=== PATIENT | male | born 1985 | race Caucasian/White ===

== ENCOUNTER 2018-10-24 20:50 | Emergency (ER) | payer OTHER ==
--- NOTE | 2018-10-24 20:53 | PDOC ---
Rapid Medical Evaluation Time Seen by Provider: 10/24/18 20:51 Medical Evaluation: 10/24/18 20:51 I have performed a brief in-person evaluation of this patient. The patient presents with a chief complaint of: atraumatic right knee pain Pertinent physical exam findings: No bony tenderness. Pt refusing complete evaluation. I have ordered the following: xray The patient will proceed to the ED for further evaluation. Discharge Disposition - Diagnosis Knee pain, acute - Referrals - Patient Instructions - Post Discharge Activity
[2018-10-24 20:54] VITALS: BP 120/82; PULSE 114; TEMP 98.3; BMI 27.9
--- NOTE | 2018-10-24 21:43 | PDOC ---
History of Present Illness - General Chief Complaint: Pain, Acute Stated Complaint: HURT RT KNEE Time Seen by Provider: 10/24/18 20:51 - History of Present Illness Initial Comments: 10/24/18 21:38 33-year-old male without comorbidities presents for evaluation of right knee pain after twisting type injury. Past History - Past Medical History Allergies/Adverse Reactions: Allergies Allergy/AdvReac Type Severity Reaction Status Date / Time No Known Allergies Allergy Verified 10/24/18 20:54 Home Medications: Ambulatory Orders NK [No Known Home Medication] 10/24/18 COPD: No - Suicide/Smoking/Psychosocial Hx Smoking History: Never smoked Review of Systems - Review of Systems Musculoskeletal: Yes: Joint Pain *Physical Exam - Vital Signs Last Vital Signs Temp Pulse Resp BP Pulse Ox 98.3 F 114 H 20 120/82 98 10/24/18 20:52 10/24/18 20:52 10/24/18 20:52 10/24/18 20:52 10/24/18 20:52 - Physical Exam Comments: 10/24/18 21:38 Right knee skin color and temperature are normal range of motion 0-30 beyond that causes pain. Extensor mechanism is intact. He has tenderness over the lateral femoral condyle and medial joint line. No endpoint on Caty's test stable to varus and valgus stress test. Thighs and calves are soft and nontender is neurovascularly intact full nonpainful ankle and hip range of motion. Medical Decision Making - Medical Decision Making 10/24/18 21:39 No evidence of fracture trauma destructive process. This is a right knee ACL tear. Weight-bear as tolerated with knee immobilizer and crutches Tylenol Motrin for pain. Orthopedic surgery follow-up given discussed with orthopedic surgery they're expecting the patient follow-up. *DC/Admit/Observation/Transfer Diagnosis at time of Disposition: Knee pain, acute, ACL (anterior cruciate ligament) rupture - Discharge Dispostion Disposition: HOME Condition at time of disposition: Stable Decision to Admit order: No - Referrals Referrals: Kyree Barnes DO [Staff Physician] - - Patient Instructions Printed Discharge Instructions: DI for Anterior Cruciate Ligament Injury, Anterior Cruciate Ligament Injury Additional Instructions: Regrese a la bruno de emergencias por empeoramiento de los sntomas. Por favor, deje el inmovilizador de rodilla para caminar. Utilice las muletas y el peso rhonda tolerado. Tylenol y Motrin rhonda se indica para el dolor. Puede quitarse el inmovilizador de rodilla por motivos de higiene. Seguimiento con ciruga ortopdica en 1-2 caldwell para negin evaluacin y tratamiento adicionales. Debe realizar un seguimiento sin falta, bradley lesin de rodilla puede requerir ciruga. return to the emergency room for worsening symptoms. Please leave the knee immobilizer on for walking around. Use the crutches and weight-bear as tolerated. Tylenol and Motrin as directed for pain. He may remove remove the knee immobilizer for hygiene purposes. Follow-up with orthopedic surgery in 1-2 days for further evaluation and treatment. You must follow-up without fail your knee injury may require surgery. Print Language: GERMAN - Post Discharge Activity
== END 2018-10-24 21:47 | disposition home or self-care (01) ==
LOC: JERFT 20:50
PROC: 2W3QXYZ Immobilization of Right Lower Leg using Other Device (ICD-10-PCS; principal; 2018-10-24)
DX: S83.511A Sprain of anterior cruciate ligament of right knee, initial encounter (principal); X50.1XXA Overexertion from prolonged static or awkward postures, initial encounter; Y93.89 Activity, other specified; Y92.89 Other specified places as the place of occurrence of the external cause; Y99.8 Other external cause status
CPT/HCPCS: 73560-TC-RT-FY; 99281-25

== ENCOUNTER 2019-04-28 15:51 | Emergency (ER) | payer SELFPAY ==
[2019-04-28 16:03] VITALS: BP 137/84; PULSE 79; BMI 29.2
[2019-04-28 16:05] VITALS: TEMP 97.9
[2019-04-28] MEDS ORDERED: morphine CARPU-JECT 2 MG/1 ML DISP.SYRIN IVPUSH ONE (16:21)
[2019-04-28] MEDS ORDERED: KETOROLAC TROMETHAMINE 30 MG/1 ML VIAL IVPUSH ONE (16:22)
[2019-04-28] MEDS ORDERED: ONDANSETRON 4 MG/2 ML VIAL IVPUSH ONE (16:22)
[2019-04-28] MEDS ORDERED: KETOROLAC TROMETHAMINE 30 MG/1 ML VIAL ONE (16:36)
[2019-04-28] MEDS ORDERED: MORPHINE SULFATE 2 MG/ML VIAL ONE (16:36)
[2019-04-28] MEDS ORDERED: ONDANSETRON 4 MG/2 ML VIAL ONE (16:36)
--- NOTE | 2019-04-28 16:38 | PDOC ---
History of Present Illness - General Chief Complaint: Pain, Acute Stated Complaint: KIDNEY PAIN History Source: Patient Exam Limitations: No Limitations - History of Present Illness Initial Comments: 04/28/19 16:33 Patient is a 33 year old male with h/o kidney stone, hand surgery c/o left flank pain since 5 am this morning. States woke up with the pain this morning. Pain has been constant 10/10, sharp with no aggravating or alleviating factors but associated with nausea and vomiting. He took naproxen at 1:00 pm with no relief of symptoms. Prior to presentation went to [facility], which he said he spent 3 hours with no attention so has presented here for evaluation. PMHX: as above PSOCHX: occ beer, (-) cig, (-) drug ALL: NKDA GENERAL/CONSTITUTIONAL: [No fever or chills. No weakness. No weight change.] HEAD, EYES, EARS, NOSE AND THROAT: [No change in vision. No ear pain or discharge. No sore throat.] CARDIOVASCULAR: [No chest pain or shortness of breath.] RESPIRATORY: [No cough, wheezing, or hemoptysis.] GASTROINTESTINAL: [(+) nausea, vomiting, (-) diarrhea or constipation. No rectal bleeding.] GENITOURINARY: [No dysuria, frequency, or change in urination.] MUSCULOSKELETAL: [No joint or muscle swelling or pain. No neck or back pain.] SKIN AND BREASTS: [No rash or easy bruising.] NEUROLOGIC: [No headache, vertigo, loss of consciousness, or loss of sensation.] PSYCHIATRIC: [No depression or anxiety.] ENDOCRINE: [No increased thirst. No abnormal weight change.] HEMATOLOGIC/LYMPHATIC: [No anemia, easy bleeding, or history of blood clots.] ALLERGIC/IMMUNOLOGIC: [No hives or skin allergy. No latex allergy.] GENERAL: [The patient is awake, alert, and fully oriented, in ,mild distress.] HEAD: [Normal with no signs of trauma.] EYES: [Pupils equal, round and reactive to light, extraocular movements intact, sclera anicteric, conjunctiva clear.] ENT: [Ears normal, nares patent, oropharynx clear without exudates. Moist mucous membranes.] NECK: [Normal range of motion, supple without lymphadenopathy, JVD, or masses.] LUNGS: [Breath sounds equal, clear to auscultation bilaterally. No wheezes, and no crackles.] HEART: [Regular rate and rhythm, normal S1 and S2 without murmur, rub.] ABDOMEN: [Soft, (+) tenderness to left lower quad, normoactive bowel sounds. No guarding, no rebound. No masses, (+) L CVAT] EXTREMITIES: [Normal range of motion, no edema. No clubbing or cyanosis. No cords, erythema, or tenderness.] NEUROLOGICAL: [Cranial nerves II through XII grossly intact. Normal speech, normal gait.] PSYCH: [Normal mood, normal affect.] SKIN: [Warm, Dry, normal turgor, no rashes or lesions noted.] Past History - Past Medical History Allergies/Adverse Reactions: Allergies Allergy/AdvReac Type Severity Reaction Status Date / Time No Known Allergies Allergy Verified 04/28/19 16:03 Home Medications: Ambulatory Orders Oxycodone HCl/Acetaminophen [Percocet 5-325 mg Tablet] 1 tab PO Q4H #20 tablet MDD 6 04/28/19 Tamsulosin HCl [Flomax] 0.4 mg PO DAILY #7 cap.er.24h 04/28/19 COPD: No Kidney Stones: Yes - Psycho Social/Smoking Cessation Hx Smoking History: Never smoked *Physical Exam - Vital Signs Last Vital Signs Temp Pulse Resp BP Pulse Ox 97.9 F 79 18 137/84 99 04/28/19 16:01 04/28/19 16:01 04/28/19 16:01 04/28/19 16:01 04/28/19 16:01 ED Treatment Course - LABORATORY CBC & Chemistry Diagram: 04/28/19 16:40 04/28/19 16:40 - RADIOLOGY Radiology Studies Ordered: Category Date Time Status ABDOMEN & PELVIS CT W/O CONTR [CT] Stat CT Scan 04/28/19 16:22 Ordered Medical Decision Making - Medical Decision Making 04/28/19 16:33 Patient is a 33 year old male with h/o kidney stone, hand surgery c/o left flank pain since 5 am this morning. States woke up with the pain this morning. Pain has been constant 10/10, sharp with no aggravating or alleviating factors but associated with nausea and vomiting. He took naproxen at 1:00 pm with no relief of symptoms. Prior to presentation went to [facility], which he said he spent 3 hours with no attention so has presented here for evaluation. Symptoms consistent with renal colic Labs Pain meds, antinausea. CT abdomen pelvis Noncon Reassess Patient feels improved. 04/28/19 19:27 Accession No: [id number] Patient : 1985 Reason for Exam: left flank pain Referring Physician: Patient Name: KY SOLER THIS IS A PRELIMINARY REPORT FROM [facility] DATE OF SERVICE: 2019-04-28 17:50:35 IMAGES: [id number] EXAM: ABDOMEN \T\ PELVIS CT W/O CONTR HISTORY: Left flank pain. 33-year-old male. COMPARISON: None. FINDINGS: Cardiac silhouette is normal in appearance. Minor fibrotic changes or dependent density in both lung bases. No pleural effusion. Uniform attenuation is seen throughout the liver, spleen and pancreas. No ductal dilatation, mass or cystic change. Normal gallbladder is present in the right upper quadrant. No adrenal masses. Both kidneys demonstrate calcifications of the cortical medullary junctional zone in the lower pole on the right and in the lower and upper pole on the left. Hydronephrosis of left kidney is evident with an obstructing calculus in the proximal third of the left ureter that measures 0.9 x 0.8 x 0.9 cm in size. No retroperitoneal adenopathy or fibrosis. Stomach, small bowel and colon show no evidence of bowel wall thickening. No acute inflammatory changes the right or left lower quadrant. No evidence of obstruction or ileus. Pelvic CT shows the appendix in the right lower quadrant to be normal in appearance. No diverticular disease. No acute inflammatory changes in the true pelvis. No pelvic adenopathy or free fluid in the true pelvis. The bladder is normal in appearance. No evidence of distal ureterolithiasis or ureteral dilatation. The perivesicular and perirectal fat is well preserved. No significant bone or surrounding soft tissue abnormality. IMPRESSION Bilateral nephrolithiasis. Obstructing calculus in the proximal third of the left ureter causing left hydronephrosis. The obstructing calculus measures are 0.9 x 0.8 x 0.9 cm in size. No distal ureterolithiasis or ureterectasis. No bladder stones. The prostate gland and seminal vesicles are normal in appearance. One or more of the following dose reduction techniques were used: automated exposure control, adjustment of the mA and/or kV according to patient size, use of iterative reconstructive technique. THIS DOCUMENT HAS BEEN ELECTRONICALLY SIGNED Renaldo Mckeon M.D. 04/28/2019 18:51 JUAN Valle Please call Imaging Social Worker [phone] ([phone]) with questions. INTERPRETING RADIOLOGIST: Renaldo Mckeon MD Electronically Signed: Apr 28, 2019 06:52PM EDT Laboratory Tests 04/28/19 04/28/19 04/28/19 16:40 16:40 18:49 WBC 14.3 H Hgb 16.2 Hct 49.1 H Plt Count 266 Sodium 141 Potassium 4.5 Chloride 106 Carbon Dioxide 27 Anion Gap 9 BUN 10.2 Creatinine 1.1 Random Glucose 115 H Urine Color Yellow Urine Appearance Clear Urine pH 5.0 Ur Specific [place] 1.009 L Urine Protein Negative Urine Glucose (UA) Negative Urine Ketones Negative Urine Blood 1+ H Urine Nitrite Negative Urine Bilirubin Negative Urine Urobilinogen 0.2 Ur Leukocyte Esterase Negative Urine WBC (Auto) 0 Urine RBC (Auto) 2 04/28/19 19:31 CT scan was discussed with the patient Patient reports that his pain is returning will give Percocet 1 tab p.o. and Flomax 0.4 mg p.o. 04/28/19 20:16 Patient feels improved from medications will discharge at this time and instructed to follow-up with urology. I discussed the physical exam findings, ancillary test results and final diagnoses with the patient. I answered all of the patient's questions. The patient was satisfied with the care received and felt comfortable with the discharge plan and treatment plan. The Patient agrees to follow up with the primary care physician within 24-72 hours. Discharge - Discharge Information Problems reviewed: Yes Clinical Impression/Diagnosis: Renal colic on left side Condition: Stable Disposition: HOME - Additional Discharge Information Prescriptions: Oxycodone HCl/Acetaminophen [Percocet 5-325 mg Tablet] 1 tab PO Q4H #20 tablet MDD 6 Tamsulosin HCl [Flomax] 0.4 mg PO DAILY #7 cap.er.24h - Follow up/Referral Referrals: Girish Elizalde MD [Staff Physician] - - Patient Discharge Instructions Patient Printed Discharge Instructions: DI for Kidney Stones Additional Instructions: Your Discharge Instructions: You must call primary care physician within 24 hours to arrange follow-up. Return to the Emergency Department with any new, persistent or worsening symptoms, for fever, chills, SOB, dizziness or any other concerning changes that may occur. Follow-up with the urologist call for an appointment tomorrow. - Post Discharge Activity
[2019-04-28 16:56] LABS: BASO % 0.4 % (0-2.0); EOS % 0.1 % (0-4.5); HEMATOCRIT 49.1 % (35.4-49); HEMOGLOBIN 16.2 GM/dL (11.7-16.9); LYMPH % 9.1 % (8-40); MCHC 33.1 g/dl (32.0-35.9); MEAN CELL VOLUME 87.7 fl (80-96); MEAN PLT VOLUME 9.4 fl (7.5-11.1); MONO % 5.2 % (3.8-10.2); NEUT % 85.2 % (42.8-82.8); PLATELET COUNT 266 K/MM3 (134-434); RDW 13.1 % (11.9-15.9); WHITE BLOOD COUNT 14.3 K/mm3 (4.0-10.0)
[2019-04-28 17:22] LABS: ALBUMIN 4.1 g/dl (3.4-5.0); BILIRUBIN,TOTAL 0.6 mg/dL (0.2-1); BLOOD UREA NITROGEN 10.2 mg/dL (7-18); CALCIUM 8.7 mg/dL (8.5-10.1); CREATININE 1.1 mg/dL (0.55-1.3); POTASSIUM 4.5 mmol/L (3.5-5.1); TOT PROT 7.3 g/dl (6.4-8.2)
[2019-04-28 19:25] LABS: EPI CELLS 0.1 /HPF (0-5/HPF); HYALINE CASTS 1 /lpf (0-8); URINE APPEARANCE CLEAR; URINE BACTERIA 1.4 /hpf (NEGATIVE); URINE BILIRUBIN NEGATIVE (NEGATIVE); URINE COLOR YELLOW; URINE GLUCOSE (UA) NEGATIVE (NEGATIVE); URINE KETONE NEGATIVE (NEGATIVE); URINE LEUK ESTERASE NEGATIVE (NEGATIVE); URINE NITRITE NEGATIVE (NEGATIVE); URINE PROTEIN NEGATIVE (NEGATIVE); URINE RBC 2 /hpf (0-4); URINE UROBILINOGEN 0.2 mg/dL (0.2-1.0); URINE WBC 0 /hpf (0-5)
[2019-04-28] MEDS ORDERED: TAMSULOSIN HCL 0.4 MG CAP PO ONE (19:30)
[2019-04-28] MEDS ORDERED: TAMSULOSIN HCL 0.4 MG CAP ONE (19:41)
== END 2019-04-28 20:35 | disposition home or self-care (01) ==
LOC: JER 15:51
PROC: 3E033GC Introduction of Other Therapeutic Substance into Peripheral Vein, Percutaneous Approach (ICD-10-PCS; principal; 2019-04-28)
PROC: 3E033NZ Introduction of Analgesics, Hypnotics, Sedatives into Peripheral Vein, Percutaneous Approach (ICD-10-PCS; 2019-04-28)
PROC: 3E0333Z Introduction of Anti-inflammatory into Peripheral Vein, Percutaneous Approach (ICD-10-PCS; 2019-04-28)
DX: N13.2 Hydronephrosis with renal and ureteral calculous obstruction (principal); Z87.442 Personal history of urinary calculi
CPT/HCPCS: 36415; 74176-TC; 80053; 81003; 85025; 99283-25

== ENCOUNTER 2019-04-30 22:10 | Emergency (ER) | payer OTHER ==
[2019-04-30 22:28] VITALS: BP 153/89; PULSE 103; TEMP 99.4; BMI 29.2
--- NOTE | 2019-05-01 01:06 | PDOC ---
Attending Attestation - Resident Resident Name: Josiah Ho - ED Attending Attestation I have performed the following: I have examined & evaluated the patient, The case was reviewed & discussed with the resident, I agree w/resident's findings & plan
[2019-05-01] MEDS ORDERED: KETOROLAC TROMETHAMINE 15 MG/ML VIAL IM ONE (01:47)
[2019-05-01] MEDS ORDERED: KETOROLAC TROMETHAMINE 15 MG/ML VIAL ONE (01:50)
== END 2019-05-01 03:00 | disposition left against medical advice (07) ==
LOC: JER 22:10
DX: Z53.21 Procedure and treatment not carried out due to patient leaving prior to being seen by health care provider (principal)
CPT/HCPCS: 99281-25

== ENCOUNTER 2020-04-09 13:47 | Emergency (ER) | payer OTHER ==
[2020-04-09 14:08] VITALS: BP 141/82; PULSE 96; TEMP 98.5; BMI 29.2
[2020-04-09] MEDS ORDERED: IBUPROFEN 600 MG TABLET (FP) PO ONE ×2 (15:05→15:14)
[2020-04-09] MEDS ORDERED: CYCLOBENZAPRINE HCL 10 MG TABLET (FP) PO ONE (15:05)
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
[2020-04-09] MEDS ORDERED: CYCLOBENZAPRINE HCL 10 MG TABLET (FP) ONE (15:14)
== END 2020-04-09 15:20 | disposition home or self-care (01) ==
LOC: JERFT 13:47
DX: M54.5 Low back pain (principal)
CPT/HCPCS: 99283-25